=== PATIENT | female | born 1970 | race Caucasian/White ===

== ENCOUNTER 2019-03-26 15:20 | Outpatient (CLI) | payer BC ==
[~2019-03-26] VITALS: Ht 170.2 cm; Wt 67.2 kg
[2019-03-26] MEDS ORDERED: FERR-84 PO (15:53)
== END 2019-03-26 15:54 | disposition home or self-care (01) ==
LOC: PREOP 15:20
PROVIDERS: ATTEND Internal Medicine
DX: Z01.818 Encounter for other preprocedural examination (principal)

== ENCOUNTER 2019-03-29 07:27 | Day surgery (SDC) | payer BC ==
--- NOTE | 2019-03-19 18:22 | HISTORY AND PHYSICAL ---
DATE OF SERVICE: PANENDOSCOPY HISTORY AND PHYSICAL HISTORY OF PRESENT ILLNESS: The patient is a 48-year-old white female who was noted to have microcytic anemia by her primary care provider, Dr. Macias after she came in for evaluation for fatigue. She had not been aware of any bright red blood per rectum or melena and has just started iron therapy 325 mg ferrous sulfate twice daily without any reported constipation problems thus far. She states that she had a colonoscopy at the age of 29 for rectal bleeding that did not turn up any significant problems. FAMILY HISTORY: Pertinent for colon cancer in one paternal grandmother and there are multiple individuals with ovarian cancer on her mom's side as well as breast cancer. She did see a research geneticist in the past and underwent genetic testing that was reportedly negative that entail more than just the BRCA genes. PAST SURGICAL HISTORY: She had an appendectomy at the age of 7 and an emergency 15 years ago and wisdom tooth extraction. SOCIAL HISTORY: She reports rare alcohol intake and no past smoking history. PAST MEDICAL HISTORY: Otherwise, noncontributory. GYNECOLOGIC HISTORY: Pertinent for, she reports heavy flow on one day of the month. Periods are regular otherwise. REVIEW OF SYSTEMS: CONSTITUTIONAL: She has had no night sweats, chills or change in weight. Does report fatigue. Denies any restless leg symptoms. CARDIOVASCULAR: She has no history of vascular disease. Denies syncope, presyncope. GASTROINTESTINAL: As noted in the HPI. PHYSICAL EXAMINATION: GENERAL: Reveals a white female, slightly pale, but in no acute distress. VITAL SIGNS: Blood pressure 120/70. HEENT: Unremarkable. She has a Mallampati class 1 pharyngeal configuration. NECK: Revealed no JVD, adenopathy or bruits. CHEST: Clear to auscultation. CARDIOVASCULAR: Reveals a regular rate and rhythm without murmur, S3 or S4. ABDOMEN: Soft, supple without mass, organomegaly or tenderness. EXTREMITIES: Reveal no cyanosis, clubbing or edema. LABS: Blood tests were reviewed on the 02/18/2019, hemoglobin was 9.8 with an MCV of 77. Ferritin level was 3 and iron 32. The remainder of her chemistry was unremarkable. She had lipid panel revealing an HDL of 73 and an LDL of 122 with a triglyceride level of 96 with total cholesterol of 215. Chemistry panel was normal. A1c was obtained, which was 5.4%. ASSESSMENT AND PLAN: For further evaluation of iron deficiency anemia, the patient was set up for colonoscopy with possible EGD to follow if no potential bleeding sites were identified. The patient is to continue iron therapy, but hold the day prior. Earlier time was offered, but the patient wished to put it off until the 03/29/2019. Job ID: [id number] DocumentID: [id number] Dictated Date: 02/25/2019 11:54:34 Expert Medical Writer Date: 02/25/2019 13:03:02 Dictated By: DESIRAE VAUGHN MD
[~2019-03-29] VITALS: Ht 177 cm; Wt 67.2 kg
[2019-03-29] VITALS (12 sets, daily range): BP systolic 100–125; BP diastolic 55–82
[~2019-03-29 07:27] MED LIST: D5 LR IV SOLUTION 1,000 ML IV ONE; FERR-84 PO
[2019-03-29] MEDS ORDERED: D5 LR IV SOLUTION 1,000 ML IV STA (07:46)
[2019-03-29] MEDS ORDERED: LIDOCAINE JELLY 2% 6 ML SYRINGE MM PRN (08:00)
[2019-03-29] MEDS ORDERED: MIDAZOLAM 2 MG/2 ML (VERSED) VIAL IVP ONE (08:00)
[2019-03-29] MEDS ORDERED: fentaNYL INJECTION 100 MCG/2 ML AMP IVP ONE (08:00)
[2019-03-29] MEDS ORDERED: MIDAZOLAM 2 MG/2 ML (VERSED) VIAL ONE ×2 (08:11)
[2019-03-29] MEDS ORDERED: fentaNYL INJECTION 100 MCG/2 ML AMP ONE ×2 (08:11→08:30)
[2019-03-29] MEDS ORDERED: LIDOCAINE JELLY 2% 6 ML SYRINGE ONE (08:21)
--- NOTE | 2019-03-29 09:22 | Pre-Op Note & Conscious Sedat ---
Pre-Operative Progress Note H&P Reviewed The H&P was reviewed, patient examined and no changes noted. Date H&P Reviewed: Mar 29, 2019 Time H&P Reviewed: 07:55 Conscious Sedation Pre-Proced ASA Score 1 For ASA 3 and 4: Consider anesthesia and medical clearance. Also, for patients with a history of failed moderate sedation consider anesthesia. Airway Lungs Heart ASA score ASA 1: a normal healthy patient ASA 2: a patient with a mild systemic disease (mid diabetes, controlled hypertension, obesity ASA 3: a patient with a severe systemic disease that limits activity (angina, COPD, prior Myocardial infarction) ASA 4: a patient with an incapacitating disease that is a constant threat to life (CHF, renal failure) ASA 5: a moribund patient not expected to survive 24 hrs. (ruptured aneurysm) ASA 6: a declared brain- patient whose organs are being harvested. For emergent operations, add the letter E after the classification Mallampati Classification Grade 2 Sedation Plan Analgesia, Amnesia, Plan communicated to team members, Discussed options with patient/fam, Discussed risks with patient/fam The patient is an appropriate candidate to undergo the planned procedure, sedation, and anesthesia. The patient immediately re-assessed prior to indication. DESIRAE VAUGHN MD Mar 29, 2019 09:22
--- NOTE | 2019-03-29 16:34 | OPERATIVE REPORT ---
DATE OF SERVICE: 03/29/2019 COLONOSCOPY SUMMARY INDICATION FOR THE PROCEDURE: Iron deficiency anemia, screening colonoscopy. DESCRIPTION OF THE PROCEDURE: The patient was placed in the left lateral decubitus position. Prior to undergoing colonoscopy, digital rectal evaluation was performed. Anal sphincter tone was normal and the perianal reflex was intact. The colonoscope was then inserted into the rectum and under direct visualization advanced to the cecum. The cecum was identified by identification of the ileocecal valve and cecal strap. The quality of prep was good. The patient tolerated the procedure well. FINDINGS: There was no evidence for internal or external hemorrhoids. Present in the distal rectum was a diminutive hyperplastic appearing polyp. It was biopsied and ablated and submitted for histopathology. Remainder of the rectum was unremarkable. The sigmoid colon, descending colon, splenic flexure, transverse colon, hepatic flexure, ascending colon and cecum were unremarkable with no evidence for diverticular disease or neoplasia. ASSESSMENT AND PLAN: One diminutive hyperplastic appearing polyp was removed via hot forceps from the distal rectum. This was an otherwise normal colonoscopy to the cecum and no evidence for blood was noted on today's colonoscopy. I thank you for the referral of this pleasant lady. Sincerely, Job ID: [id number] DocumentID: [id number] Dictated Date: 03/29/2019 11:11:30 Terminal Carman Date: 03/29/2019 16:34:03 Dictated By: DESIRAE VAUGHN MD MTDD
== END 2019-03-29 09:55 | disposition home or self-care (01) ==
LOC: ENDO 07:27
PROVIDERS: ATTEND Internal Medicine
DX: Z12.11 Encounter for screening for malignant neoplasm of colon (principal); K62.1 Rectal polyp; D50.9 Iron deficiency anemia, unspecified
CPT/HCPCS: 84703

== ENCOUNTER → 2020-07-08 | Outpatient (CLI) | payer BC ==
[~2020-07-08] MED LIST changes: -D5 LR IV SOLUTION 1,000 ML IV ONE
--- NOTE | 2020-07-08 13:24 | Diagnostic Imaging Report ---
INDICATION: Right shoulder pain. TIME OF EXAM: 1:04 PM. TECHNIQUE: Three views of the right shoulder were obtained. FINDINGS: The glenohumeral and acromioclavicular alignment is normal. The acromiohumeral space is normal. No fracture or dislocation is seen. IMPRESSION: No acute bony abnormality is detected. Dictated by: Dictated on workstation # [id number]
--- NOTE | 2020-07-08 14:06 | Diagnostic Imaging Report ---
TECHNIQUE: Color Doppler ultrasound of the right upper extremity venous system was performed. REASON FOR EXAM: Right upper extremity pain and swelling. Recent right port placement for breast cancer. COMPARISON: None. FINDINGS: Duplex Doppler, jacques-scale and color-flow imaging of the right upper extremity veins. The deep veins of the right upper extremity (subclavian, jugular, axillary, and brachial veins) show no evidence of intraluminal thrombosis, with normal compressibility, color flow, and augmentation. The radial and ulnar veins appear patent as well. The superficial veins (basilic and cephalic veins) are patent. IMPRESSION: No deep venous thrombosis seen in the right upper extremity veins. Dictated by: Dictated on workstation # [id number]
== END ==
LOC: RAD 12:47
DX: C50.112 Malignant neoplasm of central portion of left female breast (principal); M25.511 Pain in right shoulder; R22.31 Localized swelling, mass and lump, right upper limb; Z17.0 Estrogen receptor positive status [ER+]
CPT/HCPCS: 73030

== ENCOUNTER → 2021-04-02 | Outpatient (CLI) | payer BC | LOC: LABNPT 08:35 | DX: Z20.822 Contact with and (suspected) exposure to COVID-19 (principal) | CPT/HCPCS: 87635 ==

== ENCOUNTER → 2022-09-09 | Outpatient (CLI) | payer BC ==
--- NOTE | 2022-09-09 10:43 | Diagnostic Imaging Report ---
INDICATION: Back pain. Three views were obtained. FINDINGS: The alignment is normal. The vertebral body heights are well-maintained. There are very minimal degenerative changes. There is no spondylolysis or spondylolisthesis. No fractures are identified. IMPRESSION: Minimal lumbar spondylosis, otherwise unremarkable. Dictated by: Dictated on workstation # [id number]
== END ==
LOC: RAD 09:51
PROVIDERS: ATTEND Nurse Practitioner Family
DX: M54.50 Low back pain, unspecified (principal)
CPT/HCPCS: 72100